=== PATIENT | female | born 1995 | race Caucasian/White ===

== ENCOUNTER 2016-03-15 21:05 | Emergency (ER) | payer MEDICAID, OTHER ==
[~2016-03-15] VITALS: Ht 170.2 cm; Wt 44.5 kg
[~2016-03-15 21:05] MED LIST: ZOFR4TAB3 SL
[2016-03-15 21:06] VITALS: BP 113/80; PULSE 88; RESP 14; TEMP 98; O2SAT 97
[2016-03-15] MEDS ORDERED: SODIUM CHLOR 0.9% 1000 ML INJ 1,000 ML IV ONE (22:48)
--- NOTE | 2016-03-15 22:53 | PD ---
HPI Chief Complaint: Headache Time Seen by Provider: 22:40 Travel History International Travel<30 days: No Contact w/Intl Traveler<30days: No Traveled to known affect area: No History of Present Illness HPI This is a 20-year-old female who presents for evaluation of cephalgia, sore throat. Symptoms started 2 weeks ago. She describes a waxing and waning occipital headache which is aching in nature. There are no aggravating or relieving factors. She endorses a sore throat as well. The patient was seen here on March 04 and then March 08 as well and diagnosed with viral syndrome both times. During her visit she had a negative urine test, normal CBC, CMP, negative strep antigen and culture, negative flu, normal chest x-ray, negative mono screen. Her urine culture did come back positive for Escherichia coli and she is currently on a 3 day course of Bactrim. She is not having any dysuria, abdominal pain. She denies any blurred vision, aura, vomiting, fevers or chills, stiff neck, rash, recent travel. She does note that there is a sore area on her occipital scalp when she palpates it. She has no other complaints. PFSH Past Medical History ADHD: No Asthma: Yes Bipolar Disorder: Yes Weight (Kg): 3 Depression: Yes Cancer: No Cardiovascular Problems: No Diabetes: No Diminished Hearing: No Headaches: No Psychiatric: Yes Respiratory: Yes (ASTHMA) Migraines: No Seizures: No Thyroid Disease: No Ulcer: No ?: Not LMP: 02/23/16 : 3 Para: 2 Miscarriage: 1 : 0 Past Surgical History Surgical History: No Previous Surgery Section: No Other Surgery: No Family History Family Hypercholesterolemia: Yes Social History Alcohol Use: No Tobacco Use: No Substance Use: Yes (MARIJUANA) Allergies-Medications (Allergen,Severity, Reaction): Coded Allergies: No Known Allergies (Unverified , 03/15/16) Reported Meds & Prescriptions Reported Meds & Active Scripts Active Zofran Odt (Ondansetron Odt) 4 Mg Tab 4 Mg SL Q6HR PRN Zofran Odt (Ondansetron Odt) 4 Mg Tab 4 Mg SL Q8HR PRN Review of Systems Except as stated in HPI: all other systems reviewed are Neg Physical Exam Narrative GENERAL: This is a well-developed well-nourished female in no acute distress GCS 15 SKIN: Warm and dry. HEAD: Atraumatic. Normocephalic. There is an area of tenderness to palpation on the occipital scalp. There are no obvious scalp deformities, no alopecia, no erythema or scaling or induration or fluctuance. EYES: Pupils equal and round reactive to light extraocular muscles are intact. No scleral icterus. No injection or drainage. ENT: No nasal bleeding or discharge. Mucous membranes pink and moist. No oral pharyngeal erythema or exudate. NECK: Trachea midline. No JVD. No lymphadenopathy CARDIOVASCULAR: Regular rate and rhythm. No murmur appreciated. RESPIRATORY: No accessory muscle use. Clear to auscultation. Breath sounds equal bilaterally. GASTROINTESTINAL: Abdomen soft, non-tender, nondistended. MUSCULOSKELETAL: No obvious deformities. Neck supple full range of motion NEUROLOGICAL: Awake and alert. No obvious cranial nerve deficits. Motor grossly within normal limits. Normal speech. Data Data Last Documented VS Vital Signs Date Time Temp Pulse Resp B/P Pulse Ox O2 Delivery O2 Flow Rate FiO2 03/15/16 21:06 98.0 88 14 113/[address] Brain W/O Iv Contrast(Rout) (03/15/16 22:48) Iv Access Insert/Monitor (03/15/16 22:48) Sodium Chloride 0.9% Flush (Ns Flush) (03/15/16 23:00) Diphenhydramine Inj (Benadryl Inj) (03/15/16 23:00) Metoclopramide Inj (Reglan Inj) (03/15/16 23:00) Sodium Chlor 0.9% 1000 Ml Inj (Ns 1000 M (03/15/16 22:48) Ketorolac Inj (Toradol Inj) (03/16/16 01:00) MDM Medical Decision Making Medical Screen Exam Complete: Yes Emergency Medical Condition: Yes Medical Record Reviewed: Yes Interpretation(s) CT brain no acute abnormalities Differential Diagnosis Occipital neuralgia, tension headache, migraine, tumor, pseudotumor cerebri, infectious mononucleosis, pharyngitis, dehydration Narrative Course 20-year-old female who is had a waxing and waning occipital headache, sore throat for 2 weeks. Seen here in March 04March 08 with multiple tests performed essentially unremarkable except for a positive urine culture currently on Bactrim. Physical examination is reassuring with no focal neurologic deficits, no oropharyngeal erythema or exudate or lymphadenopathy. I don't suspect meningitis, pseudotumor cerebri. Given the duration of her headache, a CT of the brain has been ordered. The patient will be treated symptomatically. 0100: CT of the brain is negative. Upon reexamination the patient reports that her headache has resolved. She is stable for discharge. Diagnosis Primary Impression: Cephalgia Qualified Code: R51 - Acute nonintractable headache, unspecified headache type Additional Instructions: Stay well-hydrated and well-nourished. Follow-up close with primary care physician. Return for any emergent medical conditions. Med/Other Pt SpecificInfo: No Change to Meds Disposition: 01 DISCHARGE HOME Condition: Stable Gilberto Yuen Mar 15, 2016 22:53
[2016-03-15] MEDS ORDERED: diphenhydrAMINE HCL 50 MG/ML VIAL IVP ONE (23:00)
[2016-03-15] MEDS ORDERED: SODIUM CHLORIDE 0.9% FLUSH 5 ML FLUSH IVF PRN (23:00)
[2016-03-15] MEDS ORDERED: METOCLOPRAMIDE HCL 10 MG/2 ML VIAL IVP ONE (23:00)
--- NOTE | 2016-03-16 00:54 | RADRPT ---
EXAM DATE/TIME: 03/16/2016 00:30 [facility] COMPARISON: No previous studies available for comparison. INDICATIONS : Cephalgia. RADIATION DOSE: 56.77 CTDIvol (mGy) MEDICAL HISTORY : None SURGICAL HISTORY : None. ENCOUNTER: Initial ACUITY: 1 day PAIN SCALE: 7/10 LOCATION: cranial TECHNIQUE: Multiple contiguous axial images were obtained of the head. Using automated exposure control and adj ustment of the mA and/or kV according to patient size, radiation dose was kept as low as reasonably a chievable to obtain optimal diagnostic quality images. FINDINGS: CEREBRUM: The ventricles are normal for age. No evidence of midline shift, mass lesion, hemorrhage or acute in farction. No extra-axial fluid collections are seen. POSTERIOR FOSSA: The cerebellum and brainstem are intact. The 4th ventricle is midline. The cerebellopontine angle i s unremarkable. EXTRACRANIAL: The visualized portion of the orbits is intact. SKULL: The calvaria is intact. No evidence of skull fracture. CONCLUSION: Negative noncontrast CT brain. Molina Messina MD on March 16, 2016 at 0:52 Board Certified Radiologist. This report was verified electronically.
[2016-03-16] MEDS ORDERED: KETOROLAC TROMETHAMINE 30 MG/ML (IVP) VIAL IV PUSH ONE (01:00)
== END 2016-03-16 02:31 | disposition home or self-care (01) ==
LOC: NEPB 21:05
DX: R51 Headache (principal)
CPT/HCPCS: 70450; 96361; 96374; 96375; 99284; J1200; J1885; J2765; J7030

== ENCOUNTER 2016-04-04 18:08 | Emergency (ER) | payer MEDICAID, OTHER ==
[~2016-04-04] VITALS: Ht 170.2 cm; Wt 45.0 kg
[2016-04-04 18:10] VITALS: BP 114/72; PULSE 122; RESP 14; TEMP 97.8; O2SAT 97
[2016-04-04] MEDS ORDERED: SODIUM CHLOR 0.9% 1000 ML INJ 1,000 ML IV SCH (20:35)
--- NOTE | 2016-04-04 20:38 | PD ---
HPI Chief Complaint: Abdominal Pain Time Seen by Provider: 20:35 Travel History International Travel<30 days: No Contact w/Intl Traveler<30days: No Traveled to known affect area: No History of Present Illness HPI This is a 20-year-old female who presents to the emergency department with right sided lower abdominal pain, starting abruptly yesterday, constant for 2 days, sharp, stabbing, radiating to the back, worsening today. She denies any fevers or chills. She does feel nauseous but has not vomited. She's had no appetite. She does say it montiel when she urinates and she's been going to the bathroom more often. She denies any vaginal discharge. She's had one sexual partner in the last 6 months. She says she's never had pain like this before. PFSH Past Medical History ADHD: No Asthma: Yes Bipolar Disorder: Yes Depression: Yes Cancer: No Cardiovascular Problems: No Diabetes: No Diminished Hearing: No Headaches: No Psychiatric: Yes Respiratory: Yes (ASTHMA) Migraines: No Seizures: No Thyroid Disease: No Ulcer: No ?: Not : 3 Para: 2 Miscarriage: 1 : 0 Past Surgical History Section: No Other Surgery: No Family History Family Hypercholesterolemia: Yes Social History Alcohol Use: No Tobacco Use: No Substance Use: Yes (MARIJUANA) Allergies-Medications (Allergen,Severity, Reaction): Coded Allergies: No Known Allergies (Unverified , 03/15/16) Reported Meds & Prescriptions Reported Meds & Active Scripts Active No Active Prescriptions or Reported Medications Review of Systems Except as stated in HPI: all other systems reviewed are Neg Physical Exam Narrative GENERAL: Well-nourished, well-developed patient. SKIN: Warm and dry. HEAD: Normocephalic. EYES: No scleral icterus. No injection or drainage. NECK: Supple, trachea midline. CARDIOVASCULAR: Regular rate and rhythm without murmurs. RESPIRATORY: Breath sounds equal bilaterally. No accessory muscle use. : Right CVA tenderness. MOTOR ADJUSTER: tender to palpation over the right adnexa with no mass, no cmt, no vaginal discharge GASTROINTESTINAL: Abdomen soft, tender to palpation in the right lower quadrant and suprapubic region with no rebound or guarding. MUSCULOSKELETAL: No cyanosis, or edema. Data Data Last Documented VS Vital Signs Date Time Temp Pulse Resp B/P Pulse Ox O2 Delivery O2 Flow Rate FiO2 04/04/16 21:12 20 99 Room Air 04/04/16 18:10 97.8 122 114/72 Orders Complete Blood Count With Diff (04/04/16 20:35) Comprehensive Metabolic Panel (04/04/16 20:35) Urinalysis - C+S If Indicated (04/04/16 20:35) Iv Access Insert/Monitor (04/04/16 20:35) Ecg Monitoring (04/04/16 20:35) Oximetry (04/04/16 20:35) Sodium Chlor 0.9% 1000 Ml Inj (Ns 1000 M (04/04/16 20:35) Sodium Chloride 0.9% Flush (Ns Flush) (04/04/16 20:45) Ketorolac Inj (Toradol Inj) (04/04/16 20:45) Ed Urine Pregnancytest Poc (04/04/16 20:35) Wet Prep Profile (04/04/16 20:36) Gc And Chlamydia Pcr (04/04/16 20:36) Labs Laboratory Tests Test 04/04/16 21:00 White Blood Count 8.2 TH/MM3 Red Blood Count 4.31 MIL/MM3 Hemoglobin 13.0 GM/DL Hematocrit 36.4 % Mean Corpuscular Volume 84.5 FL Mean Corpuscular Hemoglobin 30.1 PG Mean Corpuscular Hemoglobin 35.6 % Concent Red Cell Distribution Width 13.1 % Platelet Count 286 TH/MM3 Mean Platelet Volume 8.0 FL Neutrophils (%) (Auto) 58.4 % Lymphocytes (%) (Auto) 32.0 % Monocytes (%) (Auto) 8.4 % Eosinophils (%) (Auto) 0.8 % Basophils (%) (Auto) 0.4 % Neutrophils # (Auto) 4.8 TH/MM3 Lymphocytes # (Auto) 2.6 TH/MM3 Monocytes # (Auto) 0.7 TH/MM3 Eosinophils # (Auto) 0.1 TH/MM3 Basophils # (Auto) 0.0 TH/MM3 CBC Comment DIFF FINAL Differential Comment Urine Color YELLOW Urine Turbidity CLEAR Urine pH 5.5 Urine Specific [place] 1.018 Urine Protein NEG mg/dL Urine Glucose (UA) NEG mg/dL Urine Ketones NEG mg/dL Urine Occult Blood NEG Urine Nitrite NEG Urine Bilirubin NEG Urine Urobilinogen LESS THAN 2.0 MG/DL Urine Leukocyte Esterase NEG Urine RBC LESS THAN 1 /hpf Urine WBC 2 /hpf Urine Squamous Epithelial 1 /hpf Cells Urine Mucus FEW /lpf Microscopic Urinalysis Comment CULT NOT INDICATED Sodium Level 141 MEQ/L Potassium Level 3.3 MEQ/L Chloride Level 104 MEQ/L Carbon Dioxide Level 29.2 MEQ/L Anion Gap 8 MEQ/L Blood Urea Nitrogen 10 MG/DL Creatinine 0.77 MG/DL Estimat Glomerular Filtration 97 ML/MIN Rate Random Glucose 85 MG/DL Calcium Level 8.9 MG/DL Total Bilirubin 0.5 MG/DL Aspartate Amino Transf 9 U/L (AST/SGOT) Alanine Aminotransferase 21 U/L (ALT/SGPT) Alkaline Phosphatase 106 U/L Total Protein 7.6 GM/DL Albumin 4.1 GM/DL [facility] Medical Decision Making Medical Screen Exam Complete: Yes Emergency Medical Condition: Yes Interpretation(s) Afebrile, tachycardic, normotensive No leukocytosis Mild hypokalemia Urinalysis: Negative for infection Differential Diagnosis Ovarian cyst rupture, appendicitis, urinary tract infection, nephrolithiasis, pelvic inflammatory disease Narrative Course This is a 20-year-old female who presents to the emergency department with right sided pelvic pain, intermittent and worsening over the past 2 days. She is very comfortable appearing, in no acute distress. She is placed on a monitor and an IV was established. Labs were obtained which were all reassuring. White blood cell count is normal and the patient is afebrile. Given her constellation of symptoms I doubt appendicitis. Her pelvic exam was unremarkable with the exception of some right adnexal tenderness. I suspect the patient had no ovarian cyst rupture. Given she is very well-appearing and comfortable I doubt an ovarian torsion. I did discuss with her the risks versus benefits of further imaging and I urged her to return to the emergency department if her symptoms worsen, if she develops vomiting, fever or for pain is worsening. Patient was amenable to this plan. Diagnosis Primary Impression: Ovarian cyst rupture Patient Instructions: General Instructions Additional Instructions: If you develop severe or worsening abdominal pain, fever>100.4, persistent vomiting or inability to eat or drink return to the emergency department immediately. Follow up with your primary care physician in 1-2 days for a check-up. Med/Other Pt SpecificInfo: Prescription(s) given Scripts Naproxen 500 Mg [id number] Mg PO BID PRN (PAIN SCALE 4 TO 10) #20 TAB Prov:Kirstin Velasquez MD 04/04/16 Disposition: 01 DISCHARGE HOME Condition: Stable Kirstin Velasquez MD Apr 04, 2016 20:38
[2016-04-04] MEDS ORDERED: SODIUM CHLORIDE 0.9% FLUSH 5 ML FLUSH IVF PRN (20:45)
[2016-04-04] MEDS ORDERED: KETOROLAC TROMETHAMINE 30 MG/ML (IVP) VIAL IVP ONE (20:45)
[2016-04-04 21:00] VITALS: BP 119/65; PULSE 79; RESP 18; O2SAT 98
[2016-04-04 21:12] VITALS: RESP 20; O2SAT 99
[2016-04-04 21:30] LABS: BLOOD, URINE NEG (NEG); COMMENT (UR) CULT NOT INDICATED; CULTURE IF INDICATED CULT NOT INDICATED; GLUCOSE,URINE NEG (NEG); KETONE, URINE NEG (NEG); MUCUS URINE FEW /lpf (OCC); NITRITE,URINE NEG (NEG); PH, URINE 5.5 (5.0-8.5); SQUAMOUS EPITHELIAL CELL URINE 1 /hpf (0-5); URINE COLOR YELLOW (YELLW/STRAW)
[2016-04-04 21:37] LABS: AUTOMATED NEUTROPHIL # 4.8 TH/MM3 (1.8-7.7); BASOPHIL % 0.4 % (0.0-2.0); EOSINOPHIL # 0.1 TH/MM3 (0-0.4); EOSINOPHIL % 0.8 % (0.0-4.0); HEMATOCRIT 36.4 % (35.0-46.0); HEMO FLAGS DIFF FINAL; LYMPHOCYTE # 2.6 TH/MM3 (1.0-4.8); MEAN CELL VOLUME 84.5 FL (80.0-100.0); MEAN CORPUSCULAR HEMOGLOBIN 30.1 PG (27.0-34.0); MEAN CORPUSCULAR HGB CONC 35.6 % (32.0-36.0); MONO % 8.4 % (0.0-8.0); NEUT % 58.4 % (16.0-70.0); PLATELET COUNT 286 TH/MM3 (150-450); RED BLOOD COUNT 4.31 MIL/MM3 (4.00-5.30); RED CELL DISTRIBUTION WIDTH 13.1 % (11.6-17.2); WHITE BLOOD COUNT 8.2 TH/MM3 (4.0-11.0)
[2016-04-04 21:41] LABS: ANION GAP 8 MEQ/L (5-15); AST (GOT) 9 U/L (16-38); BICARBONATE 29.2 MEQ/L (21.0-32.0); BLOOD UREA NITROGEN 10 MG/DL (7-18); CHLORIDE 104 MEQ/L (98-107); GLOMERULAR FILTRATION RATE 97 ML/MIN (>89); POTASSIUM 3.3 MEQ/L (3.5-5.1); SODIUM (NA) 141 MEQ/L (136-145)
[2016-04-04 21:44] LABS: ALKALINE PHOSPHATASE 106 U/L (45-117); ALT (GPT) 21 U/L (9-42); TOTAL BILIRUBIN ADULT 0.5 MG/DL (0.2-1.0)
[2016-04-04] MEDS ORDERED: NAPR500T PO (22:19)
[2016-04-04 22:33] VITALS: BP 117/87; PULSE 88; RESP 18; O2SAT 98
[2016-04-04 22:34] VITALS: RESP 18
[2016-04-05 00:57] LABS: CHLAMYDIA PCR NOT DETECTED (NOT DETECT); NEISSERIA PCR NOT DETECTED (NOT DETECT)
== END 2016-04-04 22:58 | disposition home or self-care (01) ==
LOC: NEPE 18:08
DX: N83.201 Unspecified ovarian cyst, right side (principal); R30.0 Dysuria
CPT/HCPCS: 80053; 81001; 84703; 85025; 87210; 87491; 87591; 96361; 96374; 99284; J1885; J7030

== ENCOUNTER 2016-04-27 14:08 | Emergency (ER) | payer OTHER ==
[~2016-04-27] VITALS: Ht 172.7 cm; Wt 48.0 kg
[~2016-04-27 14:08] MED LIST changes: +NAPR500T PO; -ZOFR4TAB3 SL
[2016-04-27 14:09] VITALS: BP 112/72; PULSE 74; RESP 14; TEMP 97.9; O2SAT 99
[2016-04-27] MEDS ORDERED: SODIUM CHLORIDE 0.9% FLUSH 5 ML FLUSH IVF PRN (15:15)
[2016-04-27 15:24] VITALS: O2SAT 100
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
[2016-04-27 15:54] LABS: AUTOMATED NEUTROPHIL # 4.7 TH/MM3 (1.8-7.7); BASOPHIL % 0.4 % (0.0-2.0); EOSINOPHIL # 0.1 TH/MM3 (0-0.4); EOSINOPHIL % 1.3 % (0.0-4.0); HEMATOCRIT 34.6 % (35.0-46.0); HEMO FLAGS DIFF FINAL; LYMPH % 27.9 % (9.0-44.0); LYMPHOCYTE # 2.2 TH/MM3 (1.0-4.8); MEAN CELL VOLUME 85.8 FL (80.0-100.0); NEUT % 60.4 % (16.0-70.0); PLATELET COUNT 313 TH/MM3 (150-450); RED BLOOD COUNT 4.03 MIL/MM3 (4.00-5.30); RED CELL DISTRIBUTION WIDTH 13.3 % (11.6-17.2); WHITE BLOOD COUNT 7.9 TH/MM3 (4.0-11.0)
[2016-04-27 16:08] LABS: BICARBONATE 29.2 MEQ/L (21.0-32.0); POTASSIUM 3.8 MEQ/L (3.5-5.1)
[2016-04-27] MEDS ORDERED: IOHEXOL 350 MG/ML 10 ML VIAL (for RAD DIAG) IV ONE (17:16)
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
[2016-04-27] MEDS ORDERED: ACETAMINOPHEN 325 MG TAB PO ONE (18:15)
[2016-04-27 18:26] VITALS: BP 118/58
== END 2016-04-27 18:27 | disposition home or self-care (01) ==
LOC: NEPB 14:08 → NEPA 18:27
DX: R07.89 Other chest pain (principal); R10.9 Unspecified abdominal pain; J45.909 Unspecified asthma, uncomplicated; F31.9 Bipolar disorder, unspecified; F17.210 Nicotine dependence, cigarettes, uncomplicated; Y04.0XXA Assault by unarmed brawl or fight, initial encounter; Y93.9 Activity, unspecified; Y92.9 Unspecified place or not applicable; Y99.9 Unspecified external cause status
CPT/HCPCS: 71020; 74177; 80048; 85025; 99284; Q9967

== ENCOUNTER 2016-06-28 15:59 | Emergency (ER) | payer MEDICAID, OTHER ==
[~2016-06-28] VITALS: Ht 167.6 cm; Wt 55.0 kg
[2016-06-28 16:05] VITALS: BP 116/71; PULSE 104; RESP 16; TEMP 98.9; O2SAT 98
[2016-06-28] MEDS ORDERED: SODIUM CHLORIDE 0.9% FLUSH 10 ML FLUSH IVF PRN (16:15)
--- NOTE | 2016-06-28 16:26 | PD ---
HPI Chief Complaint: Respiratory Symptoms Time Seen by Provider: 16:23 Travel History International Travel<30 days: No Contact w/Intl Traveler<30days: No Traveled to known affect area: No History of Present Illness HPI Patient is a 21-year-old female presented to the emergency for evaluation of shortness of breath and pain. Patient states for the last hour she's felt as if she could not take a deep breath or EKG reports intermittent chest pain that radiates up to her left shoulder. Patient also reports feeling as if her heart is beating fast. She reports a history of asthma but states she's never felt like this before. PFSH Past Medical History ADHD: No Asthma: Yes Bipolar Disorder: Yes Depression: Yes Cancer: No Cardiovascular Problems: No Diabetes: No Diminished Hearing: No Genitourinary: Yes (UTI) Headaches: No Psychiatric: Yes Respiratory: Yes (ASTHMA) Migraines: No Seizures: No Thyroid Disease: No Ulcer: No ?: Not LMP: 06/02/16 : 3 Para: 2 Miscarriage: 1 : 0 Past Surgical History Section: No Other Surgery: No Family History Family Hypercholesterolemia: Yes Social History Alcohol Use: No Tobacco Use: Yes (CIG) Substance Use: Yes (MARIJUANA OCC) Allergies-Medications (Allergen,Severity, Reaction): Coded Allergies: No Known Allergies (Unverified , 06/28/16) Reported Meds & Prescriptions Reported Meds & Active Scripts Active No Active Prescriptions or Reported Medications Review of Systems Except as stated in HPI: all other systems reviewed are Neg General / Constitutional: No: Fever HENT: No: Headaches Cardiovascular: Positive: Chest Pain or Discomfort, Palpitations, Tachycardia Respiratory: Positive: Shortness of Breath, Pleuritic Pain Gastrointestinal: No: Nausea, Abdominal Pain Physical Exam Narrative GENERAL: Well-developed, well-nourished, alert female. Resting comfortably in no acute distress. SKIN: Focused skin assessment warm/dry. HEAD: Atraumatic. Normocephalic. EYES: Pupils equal and round. No scleral icterus. No injection or drainage. ENT: No nasal bleeding or discharge. Mucous membranes pink and moist. NECK: Trachea midline. No JVD. CARDIOVASCULAR: Tachycardic. No murmur appreciated. RESPIRATORY: No accessory muscle use. Clear to auscultation. Breath sounds equal bilaterally. GASTROINTESTINAL: Abdomen soft, non-tender, nondistended. Hepatic and splenic margins not palpable. MUSCULOSKELETAL: No obvious deformities. No clubbing. No cyanosis. No edema. NEUROLOGICAL: Awake and alert. No obvious cranial nerve deficits. Motor grossly within normal limits. Normal speech. PSYCHIATRIC: Appropriate mood and affect; insight and judgment normal. Data Data Last Documented VS Vital Signs Date Time Temp Pulse Resp B/P Pulse Ox O2 Delivery O2 Flow Rate FiO2 06/28/16 17:27 65 16 119/63 100 06/28/16 16:57 Room Air 06/28/16 16:05 98.9 Orders Complete Blood Count With Diff (06/28/16 16:13) Basic Metabolic Panel (Bmp) (06/28/16 16:13) D-Dimer (06/28/16 16:13) Iv Access Insert/Monitor (06/28/16 16:13) Electrocardiogram (06/28/16 16:13) Ecg Monitoring (06/28/16 16:13) Oximetry (06/28/16 16:13) Oxygen Administration (06/28/16 16:13) Chest, Single Ap (06/28/16 16:13) Sodium Chloride 0.9% Flush (Ns Flush) (06/28/16 16:15) Labs Laboratory Tests Test 06/28/16 16:30 White Blood Count 7.7 TH/MM3 Red Blood Count 4.15 MIL/MM3 Hemoglobin 12.5 GM/DL Hematocrit 35.2 % Mean Corpuscular Volume 84.6 FL Mean Corpuscular Hemoglobin 30.0 PG Mean Corpuscular Hemoglobin 35.5 % Concent Red Cell Distribution Width 12.3 % Platelet Count 267 TH/MM3 Mean Platelet Volume 8.0 FL Neutrophils (%) (Auto) 61.0 % Lymphocytes (%) (Auto) 28.4 % Monocytes (%) (Auto) 9.2 % Eosinophils (%) (Auto) 0.8 % Basophils (%) (Auto) 0.6 % Neutrophils # (Auto) 4.7 TH/MM3 Lymphocytes # (Auto) 2.2 TH/MM3 Monocytes # (Auto) 0.7 TH/MM3 Eosinophils # (Auto) 0.1 TH/MM3 Basophils # (Auto) 0.0 TH/MM3 CBC Comment DIFF FINAL Differential Comment D-Dimer Quantitative (PE/DVT) 0.26 MG/L FEU Sodium Level 141 MEQ/L Potassium Level 3.8 MEQ/L Chloride Level 107 MEQ/L Carbon Dioxide Level 29.2 MEQ/L Anion Gap 5 MEQ/L Blood Urea Nitrogen 15 MG/DL Creatinine 0.84 MG/DL Estimat Glomerular Filtration 86 ML/MIN Rate Random Glucose 87 MG/DL Calcium Level 8.9 MG/DL MDM Medical Decision Making Medical Screen Exam Complete: Yes Emergency Medical Condition: Yes Interpretation(s) Vital Signs Date Time Temp Pulse Resp B/P Pulse Ox O2 Delivery O2 Flow Rate FiO2 06/28/16 16:05 98.9 104 16 116/71 98 Differential Diagnosis Pleurisy versus PE versus asthma exacerbation versus anxiety versus other Narrative Course Patient is a 21-year-old female presented to emergency department for evaluation of shortness of breath and pain in her chest. Symptoms started 1 hour prior to arrival. Due to the abrupt onset of d-dimer was ordered as well as labs and a chest x-ray. D-dimer was normal, labs are unremarkable. Patient appears well. She was mildly tachycardic on arrival, her heart rate was reassessed in the 80s. Diagnosis Primary Impression: Chest pain, unspecified Referrals: Primary Care Physician Patient Instructions: Chest Pain (ED), General Instructions Additional Instructions: Follow-up with her primary doctor Return to emergency department for any new or worsening symptoms May take [id number] acetaminophen or ibuprofen as needed and as directed for pain Med/Other Pt SpecificInfo: No Change to Meds Scripts No Active Prescriptions or Reported Meds Disposition: 01 DISCHARGE HOME Condition: Stable Vianney Leung Jun 28, 2016 16:25
[2016-06-28 16:56] LABS: AUTOMATED NEUTROPHIL # 4.7 TH/MM3 (1.8-7.7); BASOPHIL % 0.6 % (0.0-2.0); EOSINOPHIL # 0.1 TH/MM3 (0-0.4); EOSINOPHIL % 0.8 % (0.0-4.0); HEMATOCRIT 35.2 % (35.0-46.0); HEMO FLAGS DIFF FINAL; LYMPH % 28.4 % (9.0-44.0); LYMPHOCYTE # 2.2 TH/MM3 (1.0-4.8); MEAN CELL VOLUME 84.6 FL (80.0-100.0); MEAN CORPUSCULAR HGB CONC 35.5 % (32.0-36.0); MONO % 9.2 % (0.0-8.0); PLATELET COUNT 267 TH/MM3 (150-450); RED BLOOD COUNT 4.15 MIL/MM3 (4.00-5.30); RED CELL DISTRIBUTION WIDTH 12.3 % (11.6-17.2); WHITE BLOOD COUNT 7.7 TH/MM3 (4.0-11.0)
[2016-06-28 16:57] VITALS: BP 116/59; PULSE 82; RESP 16; O2SAT 98
[2016-06-28 17:12] LABS: BICARBONATE 29.2 MEQ/L (21.0-32.0); POTASSIUM 3.8 MEQ/L (3.5-5.1)
--- NOTE | 2016-06-28 17:13 | PD ---
Data Data Last Documented VS Vital Signs Date Time Temp Pulse Resp B/P Pulse Ox O2 Delivery O2 Flow Rate FiO2 06/28/16 16:57 82 16 116/59 98 Room Air 06/28/16 16:05 98.9 Orders Complete Blood Count With Diff (06/28/16 16:13) Basic Metabolic Panel (Bmp) (06/28/16 16:13) D-Dimer (06/28/16 16:13) Iv Access Insert/Monitor (06/28/16 16:13) Electrocardiogram (06/28/16 16:13) Ecg Monitoring (06/28/16 16:13) Oximetry (06/28/16 16:13) Oxygen Administration (06/28/16 16:13) Chest, Single Ap (06/28/16 16:13) Sodium Chloride 0.9% Flush (Ns Flush) (06/28/16 16:15) Labs Laboratory Tests Test 06/28/16 16:30 White Blood Count 7.7 TH/MM3 Red Blood Count 4.15 MIL/MM3 Hemoglobin 12.5 GM/DL Hematocrit 35.2 % Mean Corpuscular Volume 84.6 FL Mean Corpuscular Hemoglobin 30.0 PG Mean Corpuscular Hemoglobin 35.5 % Concent Red Cell Distribution Width 12.3 % Platelet Count 267 TH/MM3 Mean Platelet Volume 8.0 FL Neutrophils (%) (Auto) 61.0 % Lymphocytes (%) (Auto) 28.4 % Monocytes (%) (Auto) 9.2 % Eosinophils (%) (Auto) 0.8 % Basophils (%) (Auto) 0.6 % Neutrophils # (Auto) 4.7 TH/MM3 Lymphocytes # (Auto) 2.2 TH/MM3 Monocytes # (Auto) 0.7 TH/MM3 Eosinophils # (Auto) 0.1 TH/MM3 Basophils # (Auto) 0.0 TH/MM3 CBC Comment DIFF FINAL Differential Comment D-Dimer Quantitative (PE/DVT) 0.26 MG/L FEU MDM Supervised Visit with TRISTAN: Yes Narrative Course I, Dr. Hughes, have reviewed the advance practice practioner's documentation and am in agreement, met with the patient face to face, made the diagnosis, and the medical decision making was done by me. *My assessment and Findings: 21-year-old female here with complaint of shortness of breath. Patient states that she had fairly sudden onset of shortness of breath as if she couldn't take a deep breath for the last hour or so. Associated palpitations as though her heart is racing and skipping beats. History of asthma but no history of similar symptoms to this. Patient also notes a twinge, describes this as one to 2 seconds of pain in the chest. Really no DVT or PE risk factors though she is slightly tachycardic with heart rate of 104. Differential includes arrhythmia, palpitations, anxiety, left lid abnormality and less likely PE. Twelve-lead EKG shows sinus rhythm with sinus arrhythmia but otherwise negative. We'll obtain laboratory workup including d- dimer and chest x-ray for disposition to home if negative. Scripts No Active Prescriptions or Reported Meds Shayy Hughes MD Jun 28, 2016 17:13
[2016-06-28 17:27] VITALS: BP 119/63
--- NOTE | 2016-06-28 17:32 | RADRPT ---
EXAM DATE/TIME: 06/28/2016 16:32 [facility] COMPARISON: CHEST SINGLE AP, March 04, 2016, 20:15. INDICATIONS : Shortness of breath. MEDICAL HISTORY : None. SURGICAL HISTORY : None. ENCOUNTER: Initial ACUITY: 1 day PAIN SCORE: 0/10 LOCATION: Bilateral chest FINDINGS: A single view of the chest demonstrates the lungs to be symmetrically hyperinflated without evidence of mass, infiltrate or effusion. The cardiomediastinal contours are unremarkable. Osseous structure s are intact. CONCLUSION: Hyperinflation with no acute cardiopulmonary process. Eric Segura MD on June 28, 2016 at 17:28 Board Certified Radiologist. This report was verified electronically.
--- NOTE | 2016-06-29 13:33 | EKG ---
Date Performed: 06/28/2016 Time Performed: 16:38:38 PTAGE: 21 years EKG: Sinus rhythm WITH SINUS ARRHYTHMIA NORMAL ECG Compared to prior tracing no significant change PREVIOUS TRACING : 03/04/2016 20.30 DOCTOR: Jeffrey Cabral Interpretating Date/Time 06/29/2016 13:31:30
== END 2016-06-28 17:35 | disposition home or self-care (01) ==
LOC: NEPD 15:59
DX: R07.9 Chest pain, unspecified (principal)
CPT/HCPCS: 71010; 80048; 85025; 85379; 93005

== ENCOUNTER 2017-02-14 10:20 | Emergency (ER) | payer MEDICAID ==
[~2017-02-14] VITALS: Ht 167.6 cm; Wt 43.0 kg
[2017-02-14 10:23] VITALS: BP 119/72; PULSE 105; RESP 16; TEMP 99.4; O2SAT 98
--- NOTE | 2017-02-14 10:53 | PD ---
HPI Chief Complaint: GI Complaint Time Seen by Provider: 10:32 Travel History International Travel<30 days: No Contact w/Intl Traveler<30days: No Traveled to known affect area: No History of Present Illness HPI This is a 21 year old approximately 8 weeks by dates who presents to the emergency department with subjective fevers for 3 days, associated with vomiting , not able to eat or drink, constant, moderate severity associated with lower abdominal pain. Pt. reports that she was vomiting in bed this morning and she felt like she passed out and the ambulance was there when she woke up and she thinks her son called EMS. Pt. has had some dark vaginal spotting since yesterday. Pt. found out she was 2 weeks ago and has not had an ultrasound in this . PFSH Past Medical History ADHD: No Asthma: Yes Bipolar Disorder: Yes Weight (Kg): 3 Depression: Yes Cancer: No Cardiovascular Problems: No Diabetes: No Diminished Hearing: No Genitourinary: Yes (UTI) Headaches: No Psychiatric: Yes Respiratory: Yes (ASTHMA) Migraines: No Seizures: No Thyroid Disease: No Ulcer: No Tetanus Vaccination: < 5 Years Influenza Vaccination: No ?: LMP: 12/15/16 : 3 Para: 2 Miscarriage: 1 : 0 Past Surgical History Surgical History: No Previous Surgery Section: No Family History Family Hypercholesterolemia: Yes Social History Alcohol Use: No Tobacco Use: No (QUIT 2 WEEKS AGO) Substance Use: No Allergies-Medications (Allergen,Severity, Reaction): Coded Allergies: No Known Allergies (Verified Allergy, Unknown, 02/14/17) Reported Meds & Prescriptions Reported Meds & Active Scripts Active No Active Prescriptions or Reported Medications Review of Systems Except as stated in HPI: all other systems reviewed are Neg Physical Exam Narrative GENERAL:Well appearing, no acute distress SKIN: Focused skin assessment warm and dry. HEAD: Atraumatic. Normocephalic. EYES: Pupils equal and round. No injection or drainage. ENT: Moist mucous membranes NECK: Trachea midline. CARDIOVASCULAR: Regular rate and rhythm. No murmur appreciated. RESPIRATORY: Clear to auscultation. Breath sounds equal bilaterally. GASTROINTESTINAL: Abdomen soft, non-tender, nondistended. MUSCULOSKELETAL: No obvious deformities. NEUROLOGICAL: Awake and alert. No obvious cranial nerve deficits. Moving all extremities. PSYCHIATRIC: Appropriate mood and affect; insight and judgment normal. Data Data Last Documented VS Vital Signs Date Time Temp Pulse Resp B/P (MAP) Pulse Ox O2 Delivery O2 Flow Rate FiO2 02/14/17 10:25 16 02/14/17 10:23 99.4 105 119/72 (88) 98 Orders Orders Comprehensive Metabolic Panel (02/14/17 10:56) Complete Blood Count With Diff (02/14/17 10:56) Urinalysis - C+S If Indicated (02/14/17 10:56) Ondansetron Odt (Zofran Odt) (02/14/17 11:30) Sodium Chlor 0.9% 1000 Ml Inj (Ns 1000 M (02/14/17 11:00) Ed Poc Ultrasound (02/14/17 ) Ondansetron Inj (Zofran Inj) (02/14/17 11:30) Gc And Chlamydia Pcr (02/14/17 12:30) Wet Prep Profile (02/14/17 12:30) Acetaminophen (Tylenol) (02/14/17 12:45) Sodium Chlor 0.9% 1000 Ml Inj (Ns 1000 M (02/14/17 12:45) Labs Laboratory Tests Test 02/14/17 10:50 02/14/17 12:00 02/14/17 12:20 White Blood Count 10.9 TH/MM3 Red Blood Count 4.07 MIL/MM3 Hemoglobin 12.1 GM/DL Hematocrit 35.1 % Mean Corpuscular Volume 86.4 FL Mean Corpuscular Hemoglobin 29.6 PG Mean Corpuscular Hemoglobin Concent 34.3 % Red Cell Distribution Width 12.7 % Platelet Count 217 TH/MM3 Mean Platelet Volume 8.0 FL Neutrophils (%) (Auto) 88.5 % Lymphocytes (%) (Auto) 3.2 % Monocytes (%) (Auto) 8.2 % Eosinophils (%) (Auto) 0.0 % Basophils (%) (Auto) 0.1 % Neutrophils # (Auto) 9.7 TH/MM3 Lymphocytes # (Auto) 0.3 TH/MM3 Monocytes # (Auto) 0.9 TH/MM3 Eosinophils # (Auto) 0.0 TH/MM3 Basophils # (Auto) 0.0 TH/MM3 CBC Comment DIFF FINAL Differential Comment Blood Urea Nitrogen 8 MG/DL Creatinine 0.69 MG/DL Random Glucose 113 MG/DL Total Protein 7.2 GM/DL Albumin 3.5 GM/DL Calcium Level 8.4 MG/DL Alkaline Phosphatase 79 U/L Aspartate Amino Transf (AST/SGOT) 13 U/L Alanine Aminotransferase (ALT/SGPT) 13 U/L Total Bilirubin 0.4 MG/DL Sodium Level 134 MEQ/L Potassium Level 3.0 MEQ/L Chloride Level 102 MEQ/L Carbon Dioxide Level 23.0 MEQ/L Anion Gap 9 MEQ/L Estimat Glomerular Filtration Rate 108 ML/MIN Urine Color YELLOW Urine Turbidity CLEAR Urine pH 6.5 Urine Specific Arjay 1.018 Urine Protein TRACE mg/dL Urine Glucose (UA) NEG mg/dL Urine Ketones 40 mg/dL Urine Occult Blood NEG Urine Nitrite NEG Urine Bilirubin NEG Urine Urobilinogen 2.0 MG/DL Urine Leukocyte Esterase NEG Urine RBC LESS THAN 1 /hpf Urine WBC 1 /hpf Urine Squamous Epithelial Cells 1 /hpf Urine Mucus FEW /lpf Microscopic Urinalysis Comment CULT NOT INDICATED Clue Cells (Wet Prep) NONE SEEN Vaginal Trichomonas (Wet Prep) NONE SEEN Vaginal Yeast (Wet Prep) NONE SEEN MDM Medical Decision Making Medical Screen Exam Complete: Yes Emergency Medical Condition: Yes Interpretation(s) temperature 99.4, tachycardic No leukocytosis 80% neutrophils Potassium is 3.0 Urinalysis demonstrates some ketones Differential Diagnosis Ectopic , hyperemesis gravidarum, viral syndrome, appendicitis, PID Narrative Course This is a 21-year-old female who is approximately 8 weeks by dates who presents to the emergency department with vomiting and lower abdominal discomfort associated with some spotting. She's never had spotting and prior pregnancies. She is placed in a monitor and an IV was established. Labs are obtained which were reassuring. Urinalysis demonstrates ketones. Pelvic exam demonstrates some white vaginal discharge but no signs of PID. Patient's feels much better after 2 L of IV fluids and Zofran. She says she struggled with nausea vomiting and her last . I did a bedside ultrasound which demonstrated an intrauterine with an abnormal heart rate of 200. Diagnosis Primary Impression: Threatened miscarriage Patient Instructions: General Instructions Additional Instructions: You have been diagnosed with a threatened miscarriage. Many women who have vaginal bleeding in early go on to have normal pregnancies. However some women that have vaginal bleeding will have a miscarriage and it is important to followup with your clinical manager home care. If you develop severe abdominal pain, fever, persistent vomiting or inability to eat, heavy vaginal bleeding using more than one pad an hour, lightheadedness , dizziness, chest pain or shortness of breath return to the emergency department immediately. Followup with your clinical manager home care as soon as possible. Take Tylenol as needed for pain. Med/Other Pt SpecificInfo: Prescription(s) given Scripts Pyridoxine (Pyridoxine) 25 Mg Tab 25 MG PO DAILY for Nutritional Supplement, #30 TAB 0 Refills Prov: Kirstin Velasquez MD 02/14/17 Doxylamine Succinate (Nighttime Sleep-Aid) 25 Mg Tablet 1 TAB PO HS Y for NAUSEA, #20 Prov: Kirstin Velasquez MD 02/14/17 Ondansetron Odt (Zofran Odt) 4 Mg Tab 4 MG SL Q6HR Y for Nausea/Vomiting, #20 TAB 0 Refills Prov: Kirstin Velasquez MD 02/14/17 Disposition: 01 DISCHARGE HOME Condition: Stable Kirstin Velasquez MD Feb 14, 2017 10:53
[2017-02-14] MEDS ORDERED: SODIUM CHLOR 0.9% 1000 ML INJ 1,000 ML IV ONE ×2 (11:00→12:45)
[2017-02-14] MEDS ORDERED: ONDANSETRON HCL 4 MG/2 ML VIAL IV PUSH ONE (11:30)
[2017-02-14] MEDS ORDERED: ONDANSETRON ODT 4 MG TAB PO ONE (11:30)
[2017-02-14 11:38] LABS: AUTOMATED NEUTROPHIL # 9.7 TH/MM3 (1.8-7.7); BASOPHIL % 0.1 % (0.0-2.0); HEMATOCRIT 35.1 % (35.0-46.0); HEMO FLAGS DIFF FINAL; LYMPH % 3.2 % (9.0-44.0); LYMPHOCYTE # 0.3 TH/MM3 (1.0-4.8); MEAN CELL VOLUME 86.4 FL (80.0-100.0); MEAN CORPUSCULAR HEMOGLOBIN 29.6 PG (27.0-34.0); MEAN CORPUSCULAR HGB CONC 34.3 % (32.0-36.0); MONO % 8.2 % (0.0-8.0); NEUT % 88.5 % (16.0-70.0); PLATELET COUNT 217 TH/MM3 (150-450); RED BLOOD COUNT 4.07 MIL/MM3 (4.00-5.30); RED CELL DISTRIBUTION WIDTH 12.7 % (11.6-17.2); WHITE BLOOD COUNT 10.9 TH/MM3 (4.0-11.0)
[2017-02-14 12:03] LABS: ANION GAP 9 MEQ/L (5-15); AST (GOT) 13 U/L (16-38); BLOOD UREA NITROGEN 8 MG/DL (7-18); CHLORIDE 102 MEQ/L (98-107); GLOMERULAR FILTRATION RATE 108 ML/MIN (>89); SODIUM (NA) 134 MEQ/L (136-145)
[2017-02-14 12:06] LABS: ALKALINE PHOSPHATASE 79 U/L (45-117); ALT (GPT) 13 U/L (9-42); TOTAL BILIRUBIN ADULT 0.4 MG/DL (0.2-1.0)
[2017-02-14 12:38] LABS: BLOOD, URINE NEG (NEG); COMMENT (UR) CULT NOT INDICATED; CULTURE IF INDICATED CULT NOT INDICATED; GLUCOSE,URINE NEG (NEG); KETONE, URINE 40 mg/dL (NEG); MUCUS URINE FEW /lpf (OCC); NITRITE,URINE NEG (NEG); PH, URINE 6.5 (5.0-8.5); SQUAMOUS EPITHELIAL CELL URINE 1 /hpf (0-5); URINE COLOR YELLOW (YELLW/STRAW)
[2017-02-14] MEDS ORDERED: ACETAMINOPHEN 500 MG CPLT PO ONE (12:45)
[2017-02-14] MEDS ORDERED: PYRI25TA2 PO (13:40)
[2017-02-14] MEDS ORDERED: ZOFR4TAB3 SL (13:40)
[2017-02-14] MEDS ORDERED: DOXY25TA7 PO (13:40)
[2017-02-14 19:44] LABS: CHLAMYDIA PCR NOT DETECTED (NOT DETECT); NEISSERIA PCR NOT DETECTED (NOT DETECT)
== END 2017-02-14 14:47 | disposition home or self-care (01) ==
LOC: NEPC 10:20
DX: O20.0 Threatened abortion (principal); O21.9 Vomiting of pregnancy, unspecified; R00.0 Tachycardia, unspecified; J45.909 Unspecified asthma, uncomplicated; O99.341 Other mental disorders complicating pregnancy, first trimester; F31.9 Bipolar disorder, unspecified; Z3A.01 Less than 8 weeks gestation of pregnancy
CPT/HCPCS: 80053; 81001; 85025; 86850; 86900; 86901; 87210; 87491; 87591; 96361; 96374; 99285; J2405; J7030

== ENCOUNTER 2018-04-26 04:02 | Observation (INO) ==
[2018-04-26] MEDS ORDERED: Sod Chloride 0.9% Inj 1,000 ML IV.SIG SCH (06:00)
--- NOTE | 2018-04-26 06:54 | XR ---
EXAM DATE: 04/26/2018 6:50 AM EST AGE/SEX: 23 years / Female INDICATIONS: . Syncopal episode. CLINICAL DATA: This is the patient's initial encounter. Patient reports that signs and symptoms have been present for 1 day and indicates a pain score of 0/10. MEDICAL/SURGICAL HISTORY: None. None. COMPARISON: [facility] – [place], CHEST SINGLE AP, 06/28/2016. . FINDINGS: AP and lateral views of the chest demonstrate the lungs to be symmetrically aerated without evidence of mass, infiltrate or effusion. The cardiomediastinal contours are unremarkable. Osseous structure s are intact. CONCLUSION: No acute disease Electronically signed by: Cesar Fuentes MD Board Certified Radiologist 04/26/2018 6:53 AM EST
[2018-04-26 07:01] LABS: Baso % (Auto) 0.3 % (0.0-2.0); Eos % (Auto) 0.1 % (0.0-4.0); Hematocrit 39.1 % (35.0-46.0); Hemoglobin 13.7 gm/dL (11.6-15.3); Lymph # (Auto) 1.4 th/mm3 (1.0-4.8); Lymph % (Auto) 11.1 % (9.0-44.0); Mean Corpuscular Hemoglobin 29.9 pg (27.0-34.0); Mean Corpuscular Volume 85.3 fL (80.0-100.0); Mean Platelet Volume 8.4 fL (7.0-11.0); Neut # (Auto) 10.6 th/mm3 (1.8-7.7); Neut % (Auto) 80.5 % (16.0-70.0); Platelet Count 270 th/mm3 (150-450); Red Blood Count 4.58 mil/mm3 (4.00-5.30); Red Cell Distribution Width 13.6 % (11.6-17.2); White Blood Count 13.1 th/mm3 (4.0-11.0)
[2018-04-26 07:13] LABS: Anion Gap 7 meq/L (5-15); Blood Urea Nitrogen 14 mg/dL (7-18); Calcium 9.2 mg/dL (8.5-10.1); Carbon Dioxide 26.5 meq/L (21.0-32.0); Chloride 107 meq/L (98-107); Glomerular Filtration Rate Greater Than 89 mL/min (>89); Glucose,Random 81 mg/dL (74-106); Potassium 3.6 meq/L (3.5-5.1); Sodium 140 meq/L (136-145)
--- NOTE | 2018-04-26 07:41 | CT ---
EXAM DATE: 04/26/2018 7:37 AM EST AGE/SEX: 23 years / Female INDICATIONS: Syncope CLINICAL DATA: This is the patient's initial encounter. Patient reports that signs and symptoms have been present for 1 day and indicates a pain score of 4/10. MEDICAL/SURGICAL HISTORY: Asthma. None. RADIATION DOSE: 56.77 CTDI (mGy) COMPARISON: [facility] – [place], CT BRAIN W/O CONTRAST, 03/16/2016. . TECHNIQUE: CT of the head without contrast. Using automated exposure control and adjustment of the mA and/or kV according to patient size, radiation dose was kept as low as reasonably achievable to ob tain optimal diagnostic quality images. DICOM format image data is available electronically for revi ew and comparison. FINDINGS: Cerebrum: The ventricles are normal for age. No evidence of midline shift, mass lesion, hemorrhage or acute infarction. No extraaxial fluid collections are seen. Posterior Fossa: The cerebellum and brainstem are intact. The 4th ventricle is midline. The cerebe llopontine angle is unremarkable. Extracranial: The visualized portion of the orbits is intact. Skull: The calvaria is intact. No evidence of skull fracture. CONCLUSION: 1. No acute intracranial abnormality . . Electronically signed by: Yury Li MD Board Certified Radiologist 04/26/2018 7:39 AM EST
--- NOTE | 2018-04-26 07:48 | ED ---
HPI General Chief complaint: Syncope Stated complaint: fall Time Seen by Provider: 04/26/18 05:22 Source: patient Mode of arrival: ambulatory Limitations: no limitations History of Present Illness HPI narrative: 23-year-old female came to the emergency room with history of dizziness and just not feeling right. Patient says that she started feeling like this about 24-36 hours back. She woke up feeling dizzy, numbness of her right side of her face and bilateral upper extremities. Patient at that time thought that she was having a stroke. She went to [facility] emergency room. As per the patient they never did anything. Upon asking she said a CAT scan of the brain was not done. Patient was discharged home. She soon after that came to be seen in this emergency room which was yesterday. Blood work and urinalysis was done. Patient eventually was discharged home after she was asked to get a psych screen. Patient refused to get a psych screen at that time. She says that she smokes marijuana every day. On [birth year] was her birthday and she took one ecstasy pill as well. Other than that she has not done any other drugs as per her. She has not drink excessive amount of alcohol. Patient appeared to be quite emaciated and upon asking says that she lost close to 20 pounds in past 2 weeks. This was performed by her partner as well who was in the room. No history of nausea vomiting. No history of cough. Patient says that her throat hurts and wanted me to check her throat. She has also felt a lump on the left side of her throat. Patient also showed me this rash that developed last night on her right forearm. Related Data Home Medications Medication Instructions Recorded Confirmed No Known Home Medications 04/25/18 04/26/18 Allergies Allergy/AdvReac Type Severity Reaction Status Date / Time No Known Allergies Allergy Verified 04/25/18 16:51 Review of Systems ROS: all other systems reviewed are negative [facility] Medical History Medical History Asthma (Acute) Surgical History Surgical History No history of previous surgery (Acute) Family History Family History Other Hypertension Social History Social History Substance History: Active Abuse Second Hand Smoke Exposure: Yes Smoking Status: Current every day smoker Tobacco Type: Cigarettes How Often Do You Have a Drink Containing Alcohol: 2 to 4 times a month Recent Travel in [facility] within the Last 8 Weeks: No Recent Out of Country Travel within the Last 8 Weeks: No Substance Abuse Detail Other: Substance Use Type Other:: Ecstasy Substance Use Status: Active Route Used Substance Abuse: By Mouth Last Used: 04/23/18 Substance Abuse Comment: Patient stated she took 1 1/2 pills on her bday on 04/23/18 Reason for Use: Get High Immunization History Tetanus Immunization: <5 Years Exam Narrative Exam Narrative: GENERAL: Awake, alert, emaciated, anxious SKIN: Focused skin assessment warm/dry. Generalized, mobile, nontender, soft, 0.5-1 cm multiple lymphadenopathy. Patient has 2-3 erythematous, maculopapular rash on her right forearm on the extensor aspect as well as volar aspect that is tender to touch with erythematous streaking going up to the elbow. HEAD: Atraumatic. Normocephalic. EYES: Pupils equal and round. No scleral icterus. No injection or drainage. ENT: No nasal bleeding or discharge. Mucous membranes pink and moist. NECK: Trachea midline. No JVD. CARDIOVASCULAR: Regular rate and rhythm. No murmur appreciated. RESPIRATORY: No accessory muscle use. Clear to auscultation. Breath sounds equal bilaterally. GASTROINTESTINAL: Abdomen soft, non-tender, nondistended. Hepatic and splenic margins not palpable. MUSCULOSKELETAL: No obvious deformities. No clubbing. No cyanosis. No edema. NEUROLOGICAL: Awake and alert. No obvious cranial nerve deficits. Motor grossly within normal limits. Normal speech. PSYCHIATRIC: Appropriate mood and affect; insight and judgment normal. Course Initial Documented Vital Signs Temperature 98.2 F 04/26/18 04:07 Pulse Rate 86 04/26/18 04:07 Respiratory Rate 16 04/26/18 04:07 Blood Pressure 132/72 04/26/18 04:07 Pulse Oximetry 98 04/26/18 04:07 Last Documented Vital Signs Temperature 98.7 F 04/27/18 07:48 Pulse Rate 63 04/27/18 07:48 Respiratory Rate 16 04/27/18 07:48 Blood Pressure 122/61 04/27/18 07:48 Pulse Oximetry 95 04/27/18 07:48 Sign Out Sign Out Data: Patient Sign Out occurred on 04/26/18 at 08:22. Patient's care was discussed, and care was transferred from Zaid Jc to Larry Alberto MD. Sign Out Comment: Follow-up on blood test result. Disposition according Last updated by Zaid Jc MD at 04/26/18 07:56 Post-Handoff Eval: Patient continues to have worsening lymphangitic spread up the arm from her rash on the arm. Main suspicion is this is some type of atypical soft tissue infection. Recommend admission, IV antibiotics, HIV test, reassess. Medical Decision Making MDM Narrative Medical decision making narrative: 7:50 AM awaiting for blood test result. Patient has been ordered for a CT head to rule out any intracranial lesions. Sed rate and CRP has been ordered to look for any inflammatory disorder. Case has been signed over to the oncoming ER physician. Medical Screen Exam Complete: Yes Emergency Medical Condition: Yes Lab Data Result diagrams: 04/27/18 07:16 04/27/18 07:16 POC Results POC Urine Results Negative Lab Results 04/26/18 04/26/18 04/26/18 Range/Units 06:26 06:26 06:26 WBC 13.1 H D (4.0-11.0) th/mm3 RBC 4.58 (4.00-5.30) mil/mm3 Hgb 13.7 (11.6-15.3) gm/dL Hct 39.1 (35.0-46.0) % MCV 85.3 (80.0-100.0) fL MCH 29.9 (27.0-34.0) pg MCHC 35.0 (32.0-36.0) % RDW 13.6 (11.6-17.2) % Plt Count 270 (150-450) th/mm3 MPV 8.4 (7.0-11.0) fL Neut % (Auto) 80.5 H (16.0-70.0) % Lymph % (Auto) 11.1 (9.0-44.0) % Webb % (Auto) 8.0 (0.0-8.0) % Eos % (Auto) 0.1 (0.0-4.0) % Baso % (Auto) 0.3 (0.0-2.0) % Neut # (Auto) 10.6 H (1.8-7.7) th/mm3 Lymph # (Auto) 1.4 (1.0-4.8) th/mm3 Webb # (Auto) 1.0 H (0.0-0.9) th/mm3 Eos # (Auto) 0.0 (0.0-0.4) th/mm3 Baso # (Auto) 0.0 (0.0-0.2) th/mm3 WBC Differential . Differential Comment Auto diff final ESR (0-20) mm/hr Sodium 140 (136-145) meq/L Potassium 3.6 (3.5-5.1) meq/L Chloride 107 (98-107) meq/L Carbon Dioxide 26.5 (21.0-32.0) meq/L Anion Gap 7 (5-15) meq/L BUN 14 (7-18) mg/dL Creatinine 0.78 (0.50-1.00) mg/dL Estimated GFR Greater than 89 (>89) mL/min Random Glucose 81 (74-106) mg/dL Lactic Acid 1.0 (0.4-2.0) mmol/L Calcium 9.2 (8.5-10.1) mg/dL C-Reactive Protein (0.00-0.30) mg/dL Urine Color (Yellw/Straw) Urine Clarity (Clear) Urine pH (5.0-8.5) Ur Specific [place] (1.002-1.035) Urine Protein (Neg-Trace) mg/dL Urine Glucose (UA) (Negative) mg/dL Urine Ketones (Negative) mg/dL Urine Occult Blood (Negative) Urine Nitrate (Negative) Urine Bilirubin (Negative) Urine Urobilinogen (Less than 2) mg/dL Ur Leukocyte Esterase (Negative) Urine RBC (0-3) /hpf Urine WBC (0-5) /hpf Ur Squamous Epith Cells (0-5) /hpf Urine Bacteria (None) /hpf Granular Casts (None) /lpf Urine Mucus (Occasional) /lpf Micro UA Comment Ur Microscopic Review Urine Culture Comments Urine Opiates Screen (Neg) Ur Barbiturates Screen (Neg) Ur Amphetamines Screen (Neg) U Benzodiazepines Scrn (Neg) Urine Cocaine Screen (Neg) U Cannabinoids Screen (Neg) RYAN Screen (Neg) RPR (Nonreactive) CMV IgG Ab U/mL CMV IgM Ab (<=0.8) AU/mL EBV (Quant-PCR) Quant (Undetected) IU/mL 04/26/18 04/26/18 04/26/18 Range/Units 06:26 06:26 12:47 WBC (4.0-11.0) th/mm3 RBC (4.00-5.30) mil/mm3 Hgb (11.6-15.3) gm/dL Hct (35.0-46.0) % MCV (80.0-100.0) fL MCH (27.0-34.0) pg MCHC (32.0-36.0) % RDW (11.6-17.2) % Plt Count (150-450) th/mm3 MPV (7.0-11.0) fL Neut % (Auto) (16.0-70.0) % Lymph % (Auto) (9.0-44.0) % Webb % (Auto) (0.0-8.0) % Eos % (Auto) (0.0-4.0) % Baso % (Auto) (0.0-2.0) % Neut # (Auto) (1.8-7.7) th/mm3 Lymph # (Auto) (1.0-4.8) th/mm3 Webb # (Auto) (0.0-0.9) th/mm3 Eos # (Auto) (0.0-0.4) th/mm3 Baso # (Auto) (0.0-0.2) th/mm3 WBC Differential Differential Comment ESR 29 H (0-20) mm/hr Sodium (136-145) meq/L Potassium (3.5-5.1) meq/L Chloride (98-107) meq/L Carbon Dioxide (21.0-32.0) meq/L Anion Gap (5-15) meq/L BUN (7-18) mg/dL Creatinine (0.50-1.00) mg/dL Estimated GFR (>89) mL/min Random Glucose (74-106) mg/dL Lactic Acid (0.4-2.0) mmol/L Calcium (8.5-10.1) mg/dL C-Reactive Protein 0.88 H (0.00-0.30) mg/dL Urine Color (Yellw/Straw) Urine Clarity (Clear) Urine pH (5.0-8.5) Ur Specific [place] (1.002-1.035) Urine Protein (Neg-Trace) mg/dL Urine Glucose (UA) (Negative) mg/dL Urine Ketones (Negative) mg/dL Urine Occult Blood (Negative) Urine Nitrate (Negative) Urine Bilirubin (Negative) Urine Urobilinogen (Less than 2) mg/dL Ur Leukocyte Esterase (Negative) Urine RBC (0-3) /hpf Urine WBC (0-5) /hpf Ur Squamous Epith Cells (0-5) /hpf Urine Bacteria (None) /hpf Granular Casts (None) /lpf Urine Mucus (Occasional) /lpf Micro UA Comment Ur Microscopic Review Urine Culture Comments Urine Opiates Screen (Neg) Ur Barbiturates Screen (Neg) Ur Amphetamines Screen (Neg) U Benzodiazepines Scrn (Neg) Urine Cocaine Screen (Neg) U Cannabinoids Screen (Neg) RYAN Screen (Neg) RPR Nonreactive (Nonreactive) CMV IgG Ab U/mL CMV IgM Ab (<=0.8) AU/mL EBV (Quant-PCR) Quant (Undetected) IU/mL 04/26/18 04/26/18 04/26/18 Range/Units 12:47 12:47 13:15 WBC (4.0-11.0) th/mm3 RBC (4.00-5.30) mil/mm3 Hgb (11.6-15.3) gm/dL Hct (35.0-46.0) % MCV (80.0-100.0) fL MCH (27.0-34.0) pg MCHC (32.0-36.0) % RDW (11.6-17.2) % Plt Count (150-450) th/mm3 MPV (7.0-11.0) fL Neut % (Auto) (16.0-70.0) % Lymph % (Auto) (9.0-44.0) % Webb % (Auto) (0.0-8.0) % Eos % (Auto) (0.0-4.0) % Baso % (Auto) (0.0-2.0) % Neut # (Auto) (1.8-7.7) th/mm3 Lymph # (Auto) (1.0-4.8) th/mm3 Webb # (Auto) (0.0-0.9) th/mm3 Eos # (Auto) (0.0-0.4) th/mm3 Baso # (Auto) (0.0-0.2) th/mm3 WBC Differential Differential Comment ESR (0-20) mm/hr Sodium (136-145) meq/L Potassium (3.5-5.1) meq/L Chloride (98-107) meq/L Carbon Dioxide (21.0-32.0) meq/L Anion Gap (5-15) meq/L BUN (7-18) mg/dL Creatinine (0.50-1.00) mg/dL Estimated GFR (>89) mL/min Random Glucose (74-106) mg/dL Lactic Acid (0.4-2.0) mmol/L Calcium (8.5-10.1) mg/dL C-Reactive Protein (0.00-0.30) mg/dL Urine Color (Yellw/Straw) Urine Clarity (Clear) Urine pH (5.0-8.5) Ur Specific [place] (1.002-1.035) Urine Protein (Neg-Trace) mg/dL Urine Glucose (UA) (Negative) mg/dL Urine Ketones (Negative) mg/dL Urine Occult Blood (Negative) Urine Nitrate (Negative) Urine Bilirubin (Negative) Urine Urobilinogen (Less than 2) mg/dL Ur Leukocyte Esterase (Negative) Urine RBC (0-3) /hpf Urine WBC (0-5) /hpf Ur Squamous Epith Cells (0-5) /hpf Urine Bacteria (None) /hpf Granular Casts (None) /lpf Urine Mucus (Occasional) /lpf Micro UA Comment Ur Microscopic Review Urine Culture Comments Urine Opiates Screen Neg (Neg) Ur Barbiturates Screen Neg (Neg) Ur Amphetamines Screen Pos H (Neg) U Benzodiazepines Scrn Neg (Neg) Urine Cocaine Screen Neg (Neg) U Cannabinoids Screen Pos H (Neg) RAYN Screen Neg (Neg) RPR (Nonreactive) CMV IgG Ab <0.60 U/mL CMV IgM Ab <30.00 (<=0.8) AU/mL EBV (Quant-PCR) Quant Undetected (Undetected) IU/mL 04/26/18 04/27/18 04/27/18 Range/Units 13:15 07:16 07:16 WBC 6.9 (4.0-11.0) th/mm3 RBC 3.86 L (4.00-5.30) mil/mm3 Hgb 11.6 D (11.6-15.3) gm/dL Hct 32.9 L (35.0-46.0) % MCV 85.4 (80.0-100.0) fL MCH 30.0 (27.0-34.0) pg MCHC 35.1 (32.0-36.0) % RDW 13.3 (11.6-17.2) % Plt Count 239 (150-450) th/mm3 MPV 8.4 (7.0-11.0) fL Neut % (Auto) 61.5 (16.0-70.0) % Lymph % (Auto) 25.5 (9.0-44.0) % Webb % (Auto) 11.1 H (0.0-8.0) % Eos % (Auto) 1.5 (0.0-4.0) % Baso % (Auto) 0.4 (0.0-2.0) % Neut # (Auto) 4.2 (1.8-7.7) th/mm3 Lymph # (Auto) 1.8 (1.0-4.8) th/mm3 Webb # (Auto) 0.8 (0.0-0.9) th/mm3 Eos # (Auto) 0.1 (0.0-0.4) th/mm3 Baso # (Auto) 0.0 (0.0-0.2) th/mm3 WBC Differential . Differential Comment Auto diff final ESR (0-20) mm/hr Sodium 142 (136-145) meq/L Potassium 3.5 (3.5-5.1) meq/L Chloride 109 H (98-107) meq/L Carbon Dioxide 25.6 (21.0-32.0) meq/L Anion Gap 7 (5-15) meq/L BUN 10 (7-18) mg/dL Creatinine 0.67 (0.50-1.00) mg/dL Estimated GFR Greater than 89 (>89) mL/min Random Glucose 70 L (74-106) mg/dL Lactic Acid (0.4-2.0) mmol/L Calcium 8.5 (8.5-10.1) mg/dL C-Reactive Protein (0.00-0.30) mg/dL Urine Color Yellow (Yellw/Straw) Urine Clarity Hazy H (Clear) Urine pH 5.0 (5.0-8.5) Ur Specific [place] 1.023 (1.002-1.035) Urine Protein 100 H (Neg-Trace) mg/dL Urine Glucose (UA) Negative (Negative) mg/dL Urine Ketones 20 (Negative) mg/dL Urine Occult Blood Negative (Negative) Urine Nitrate Negative (Negative) Urine Bilirubin Negative (Negative) Urine Urobilinogen Less than 2 (Less than 2) mg/dL Ur Leukocyte Esterase Negative (Negative) Urine RBC 1 (0-3) /hpf Urine WBC 8 H (0-5) /hpf Ur Squamous Epith Cells 4 (0-5) /hpf Urine Bacteria Rare H (None) /hpf Granular Casts 3 (None) /lpf Urine Mucus Many H (Occasional) /lpf Micro UA Comment Culture not ind Ur Microscopic Review Not Reportable Urine Culture Comments Culture not ind Urine Opiates Screen (Neg) Ur Barbiturates Screen (Neg) Ur Amphetamines Screen (Neg) U Benzodiazepines Scrn (Neg) Urine Cocaine Screen (Neg) U Cannabinoids Screen (Neg) RYAN Screen (Neg) RPR (Nonreactive) CMV IgG Ab U/mL CMV IgM Ab (<=0.8) AU/mL EBV (Quant-PCR) Quant (Undetected) IU/mL Imaging Data Radiologist's impression: Chest X-Ray 04/26/18 06:15 CONCLUSION: No acute disease Head CT 04/26/18 06:15 CONCLUSION: 1. No acute intracranial abnormality . . ECG Data Attestation: I personally reviewed and interpreted this ECG as follows: Interpretation: Twelve-lead EKG was reviewed by me. Normal sinus rhythm, normal axis, nonspecific ST-T wave changes. Heart rate of 76 bpm. Discharge Plan Discharge Disposition Patient Disposition: ED Admit(ED Internal Use Only) Discharge Condition Condition: Fair Discharge Order Discharge Orders: AMA Discharge (Routine); Ordered 04/27/18 Ordered By: Alex Pinon ED Use Only Admit Order (Routine); Ordered 04/26/18 Ordered By: Larry Alberto Discharge Details Anticipated Discharge Date: 04/27/18 Discharge Comment: Patient left AMA Physicians Team ED Provider: Larry Alberto Primary Care Provider: Primary Care Pema Maldonado Attending Provider: Alex Pinon Other Providers: [facility],Insurance Status ED Status: Left Department Discharge Information Discharge Date/Time: 04/26/18 10:20
[2018-04-26] MEDS ORDERED: Clindamycin 600 mg/NS Premix 600 MG/50 ML PIGGYBACK IV.SIG STA (08:39)
--- NOTE | 2018-04-26 08:42 | ECG ---
Date Performed: 04/26/2018 Time Performed: 05:41:47 PTAGE: 23 years EKG: Sinus rhythm WITH MARKED SINUS ARRHYTHMIA POSSIBLE LEFT ATRIAL ENLARGEMENT BORDERLINE ECG No significant change f rom prior electrocardiogram. PREVIOUS TRACING : 06/28/2016 16.38 DOCTOR: Nadeem Rooney Interpretating Date/Time 04/26/2018 08:40:27
[2018-04-26] MEDS ORDERED: Acetaminophen 325 MG Tablet PO PRN (09:42)
[2018-04-26] MEDS ORDERED: Sod Chloride 0.9% Inj 1,000 ML IV.CONT SCH (09:45)
--- NOTE | 2018-04-26 09:58 | P.HPIM ---
History of Present Illness Primary Care Physician: No Primary Care Physician History of Present Illness: 23-year-old female with no significant medical history who delivered a healthy baby 1 year ago presents to the ER 3 times in the last 24 hours complaining of dizziness, weakness, low-grade fever, random rash worsening on left arm. Her symptoms began yesterday morning when she visited an ER in the [facility] complaining of bilateral arm tingling and facial weakness, she was told she had a low potassium and was sent home. Despite eating bananas her symptoms persisted and she came to the ER at [place] yesterday afternoon, workup revealed nothing and she was sent home. Later that evening she had a syncopal episode, her rash on her left arm worsened and she returned to the ER for yet another visit. She denies any IV drug use. She denies any exposure to chemicals or plants. She does admit to having 1 dog, 1 cat, 1 hamster. Her dog is let out and does go into the bushes and trees areas. She cannot recall her cat scratching her on either hand in the last weeks. Her baby is approximately 1 years old and did have a febrile syndrome with a rash approximately 1 week ago, when evaluated she was told that the baby had colic but was otherwise healthy, the symptoms resolved on their own. She has not been sexually active with a man since becoming with her baby. She denies any vaginal discharge or abnormal bleeding pattern. She denies any foreign travel or camping/hiking. She denies any chest pain or palpitations. She denies any dysuria. She denies any cough or shortness of breath. Review of Systems Review of Systems: all other systems reviewed are negative [facility] Medical History Medical History Asthma (Acute) Surgical History Surgical History No history of previous surgery (Acute) Family History Family History Other Hypertension Social History Social History Substance History: Active Abuse Second Hand Smoke Exposure: Yes Smoking Status: Current every day smoker Tobacco Type: Cigarettes How Often Do You Have a Drink Containing Alcohol: 2 to 3 times a week Recent Travel in [facility] within the Last 8 Weeks: No Recent Out of Country Travel within the Last 8 Weeks: No Substance Abuse Detail Other: Substance Use Type Other:: Ecstasy Substance Use Status: Active Route Used Substance Abuse: By Mouth Last Used: 04/23/18 Substance Abuse Comment: Patient stated she took 1 1/2 pills on her bday on 04/23/18 Reason for Use: Get High Immunization History Tetanus Immunization: <5 Years Medications and Allergies Allergies Allergy/AdvReac Type Severity Reaction Status Date / Time No Known Allergies Allergy Verified 04/25/18 16:51 Home Medications Medication Instructions Recorded Confirmed Type No Known Home Medications 04/25/18 04/26/18 History Active Medications: Active Medications Acetaminophen (Tylenol) 650 mg PO Q4H PRN PRN Reason: Temp > 100.4 Sodium Chloride (Ns Inj) 1,000 mls @ 42 mls/hr IV.CONT .[id number] [facility] Ondansetron HCl (Zofran Inj) 4 mg IV.PUSH Q6H PRN PRN Reason: NAUSEA OR VOMITING Sodium Chloride (Ns Flush) 2 ml IV.FLUSH PRN PRN PRN Reason: FLUSH AFTER USING IV ACCESS Sodium Chloride (Ns Flush) 2 ml IV.FLUSH BID [facility] Physical Exam Vital signs: Vital Signs 04/26/18 04:07 04/26/18 05:25 04/26/18 05:49 Temperature 98.2 F 98.7 F Pulse Rate 86 82 Respiratory Rate 16 21 Blood Pressure 132/72 116/79 Pulse Oximetry 98 100 04/26/18 07:55 Temperature 98.7 F Pulse Rate 89 Respiratory Rate 18 Blood Pressure 119/66 Pulse Oximetry 98 Intake & Output 04/25/18 04/26/18 04/26/18 18:59 06:59 18:59 Intake Total 1000 / 1000 Balance 1000 / 1000 Weight 49.895 kg Intake: IV 1000 / 1000 NS Inj 1,000 ML @ 1000 mls/hr 1000 / 1000 IV.SIG BOLUS [facility] Rx#:[id number] Narrative: GENERAL: AAOx3, no acute distress, adequate nutrition, very thin SKIN: Warm and dry, red rash and swelling of her left wrist with random reddish papules on left arm and bicep, occasional moderate lymph node enlargement, no axillary lymph nodes enlarged, left anterior cervical lymph node enlargement HEAD: Atraumatic. Normocephalic. EYES: Pupils equal, round, reactive to light. No scleral icterus. No injection or drainage. ENT: No nasal bleeding or discharge. Moist mucous membranes. Nonerythematous oropharynx. NECK: Trachea midline. No JVD. Thyroid size within normal limits. CARDIOVASCULAR: Regular rate and rhythm. No murmur, no gallops, no rubs. RESPIRATORY: Clear and equal to auscultation bilaterally. No crackles, no wheezes. No accessory muscle use. GASTROINTESTINAL: Abdomen soft, non-tender, nondistended, normal active bowel sounds. Hepatic and splenic margins not palpable. MUSCULOSKELETAL: Extremities without clubbing or cyanosis. No obvious deformities. No edema. NEUROLOGICAL: Awake and alert. No obvious cranial nerve deficits. Motor grossly within normal limits. No focal deficits. Five out of 5 muscle strength in the arms and legs. Normal speech. Tremulous hands PSYCHIATRIC: Anxious; insight and judgment normal. Results Labs CBC & Chem 7: 04/26/18 06:26 04/26/18 06:26 Imaging Impressions Chest X-Ray 04/26/18 06:15 CONCLUSION: No acute disease Head CT 04/26/18 06:15 CONCLUSION: 1. No acute intracranial abnormality . . Caprini VTE Risk Assessment Caprini VTE Risk Assessment: No/Low Risk (score <= 1) Caprini Risk Assessment Model: Point Value = 1 Point Value = 2 Point Value = 3 Point Value = 5 Age 41-60 Minor surgery BMI > 25 kg/m2 Swollen legs Varicose veins or History of unexplained or recurrent spontaneous Oral contraceptives or hormone replacement Sepsis (< 1 month) Serious lung disease, including pneumonia (< 1 month) Abnormal pulmonary function Acute myocardial infarction Congestive heart failure (< 1 month) History of inflammatory bowel disease Medical patient at bed rest Age 61-74 Arthroscopic surgery Major open surgery (> 45 min) Laparoscopic surgery (> 45 min) Malignancy Confined to bed (> 72 hours) Immobilizing plaster cast Central venous access Age >= 75 History of VTE Family history of VTE Factor V Leiden Prothrombin [id number] Lupus anticoagulant Anticardiolipin antibodies Elevated serum homocysteine Heparin-induced thrombocytopenia Other congenital or acquired thrombophilia Stroke (< 1 month) Elective arthroplasty Hip, pelvis, or leg fracture Acute spinal cord injury (< 1 month) Prophylaxis Regimen: Total Risk Factor Score Risk Level Prophylaxis Regimen 0-1 Low Early ambulation 2 Moderate Order ONE of the following: *Sequential Compression Device (SCD) *Heparin 5000 units SQ BID 3-4 Higher Order ONE of the following medications: *Heparin 5000 units SQ TID *Enoxaparin/Lovenox 40 mg SQ daily (WT < 150 kg, CrCl > 30 mL/min) *Enoxaparin/Lovenox 30 mg SQ daily (WT < 150 kg, CrCl > 10-29 mL/min) *Enoxaparin/Lovenox 30 mg SQ BID (WT < 150 kg, CrCl > 30 mL/min) AND/OR *Sequential Compression Device (SCD) 5 or more Highest Order ONE of the following medications: *Heparin 5000 units SQ TID (Preferred with Epidurals) *Enoxaparin/Lovenox 40 mg SQ daily (WT < 150 kg, CrCl > 30 mL/min) *Enoxaparin/Lovenox 30 mg SQ daily (WT < 150 kg, CrCl > 10-29 mL/min) *Enoxaparin/Lovenox 30 mg SQ BID (WT < 150 kg, CrCl > 30 mL/min) AND *Sequential Compression Device (SCD) Assessment and Plan Plan Rash, swelling, with fevers Nonspecific presentation, uncertain etiology We will screen for latent syphilis with RPR Her baby was recently sick, so will screen for CMV and EBV RYAN screen in case of lupus Agree with clindamycin for now to cover for cellulitis If rash worsens will expand coverage to include tickborne illnesses or cat scratch fever Follow CBC in a.m. for trending of leukocytosis Anxiety Nonspecific, she did not sleep well We will add anxiety meds if symptoms worsen DVT prophylaxis Patient is fully ambulatory
[2018-04-26 13:33] LABS: Bacteria,Urine Rare /hpf; Bilirubin,Urine Negative (Negative); Clarity,Urine Hazy (Clear); Color,Urine Yellow (Yellw/Straw); Glucose,Urine (UA) Negative (Negative); Leukocyte Esterase,Urine Negative (Negative); Mucus,Urine Many /lpf (Occasional); Nitrite,Urine Negative (Negative); Specific Gravity,Urine 1.023 (1.002-1.035); Squamous Epithelial Cell,Urine 4 /hpf (0-5)
[2018-04-26] MEDS ORDERED: Acetaminophen/Codeine 300/30 MG Tablet PO PRN (18:51)
[2018-04-27 01:03] LABS: Amphetamine Screen,Urine Pos (Neg); Barbiturate Screen,Urine Neg (Neg); Cannabinoid Screen,Urine Pos (Neg); Cocaine Screen,Urine Neg (Neg)
[2018-04-27 01:06] LABS: Opiate Screen,Urine Neg (Neg)
[2018-04-27 07:49] VITALS: BP 122/61; PULSE 63; RESP 16; TEMP 98.7; O2SAT 95
[2018-04-27 08:08] LABS: Baso % (Auto) 0.4 % (0.0-2.0); Eos # (Auto) 0.1 th/mm3 (0.0-0.4); Eos % (Auto) 1.5 % (0.0-4.0); Hematocrit 32.9 % (35.0-46.0); Hemoglobin 11.6 gm/dL (11.6-15.3); Lymph # (Auto) 1.8 th/mm3 (1.0-4.8); Lymph % (Auto) 25.5 % (9.0-44.0); Mean Corpuscular HGB Conc 35.1 % (32.0-36.0); Mean Corpuscular Volume 85.4 fL (80.0-100.0); Mean Platelet Volume 8.4 fL (7.0-11.0); Mono # (Auto) 0.8 th/mm3 (0.0-0.9); Mono % (Auto) 11.1 % (0.0-8.0); Neut # (Auto) 4.2 th/mm3 (1.8-7.7); Neut % (Auto) 61.5 % (16.0-70.0); Platelet Count 239 th/mm3 (150-450); Red Blood Count 3.86 mil/mm3 (4.00-5.30); Red Cell Distribution Width 13.3 % (11.6-17.2); White Blood Count 6.9 th/mm3 (4.0-11.0)
[2018-04-27 08:25] LABS: Anion Gap 7 meq/L (5-15); Blood Urea Nitrogen 10 mg/dL (7-18); Calcium 8.5 mg/dL (8.5-10.1); Carbon Dioxide 25.6 meq/L (21.0-32.0); Chloride 109 meq/L (98-107); Glomerular Filtration Rate Greater Than 89 mL/min (>89); Glucose,Random 70 mg/dL (74-106); Potassium 3.5 meq/L (3.5-5.1); Sodium 142 meq/L (136-145)
--- NOTE | 2018-04-27 18:09 | P.DS ---
DS: Providers Date of admission: 04/26/18 09:14 Primary care physician: No Primary Care Physician Consults: 04/26/18 09:53 HUB Only Consult Order Routine Consulting Provider: [facility],Insurance Brief History from admission: 23-year-old female with no significant medical history who delivered a healthy baby 1 year ago presents to the ER 3 times in the last 24 hours complaining of dizziness, weakness, low-grade fever, random rash worsening on left arm. Her symptoms began yesterday morning when she visited an ER in the [facility] complaining of bilateral arm tingling and facial weakness, she was told she had a low potassium and was sent home. Despite eating bananas her symptoms persisted and she came to the ER at [place] yesterday afternoon, workup revealed nothing and she was sent home. Later that evening she had a syncopal episode, her rash on her left arm worsened and she returned to the ER for yet another visit. She denies any IV drug use. She denies any exposure to chemicals or plants. She does admit to having 1 dog, 1 cat, 1 hamster. Her dog is let out and does go into the bushes and trees areas. She cannot recall her cat scratching her on either hand in the last weeks. Her baby is approximately 1 years old and did have a febrile syndrome with a rash approximately 1 week ago, when evaluated she was told that the baby had colic but was otherwise healthy, the symptoms resolved on their own. She has not been sexually active with a man since becoming with her baby. She denies any vaginal discharge or abnormal bleeding pattern. She denies any foreign travel or camping/hiking. She denies any chest pain or palpitations. She denies any dysuria. She denies any cough or shortness of breath. DS: Summary Patient left AMA this morning before any significant workup or discussion of workup could occur Time Spent with Patient Total time spent providing and/or coordinating discharge services: Quality: VTE Deep Vein Thrombosis/Pulmonary Embolism Present on Admission: No Results Labs on day of discharge: Labs from last 24 hours 04/27/18 04/27/18 04/26/18 07:16 07:16 13:15 WBC 6.9 RBC 3.86 L Hgb 11.6 D Hct 32.9 L MCV 85.4 MCH 30.0 MCHC 35.1 RDW 13.3 Plt Count 239 MPV 8.4 Neut % (Auto) 61.5 Lymph % (Auto) 25.5 [place] % (Auto) 11.1 H Eos % (Auto) 1.5 Baso % (Auto) 0.4 Neut # (Auto) 4.2 Lymph # (Auto) 1.8 [place] # (Auto) 0.8 Eos # (Auto) 0.1 Baso # (Auto) 0.0 WBC Differential . Differential Comment Auto diff final Sodium 142 Potassium 3.5 Chloride 109 H Carbon Dioxide 25.6 Anion Gap 7 BUN 10 Creatinine 0.67 Estimated GFR Greater than 89 Random Glucose 70 L Calcium 8.5 Urine Opiates Screen Neg Ur Barbiturates Screen Neg Ur Amphetamines Screen Pos H U Benzodiazepines Scrn Neg Urine Cocaine Screen Neg U Cannabinoids Screen Pos H RYAN Screen 04/26/18 12:47 WBC RBC Hgb Hct MCV MCH MCHC RDW Plt Count MPV Neut % (Auto) Lymph % (Auto) [place] % (Auto) Eos % (Auto) Baso % (Auto) Neut # (Auto) Lymph # (Auto) [place] # (Auto) Eos # (Auto) Baso # (Auto) WBC Differential Differential Comment Sodium Potassium Chloride Carbon Dioxide Anion Gap BUN Creatinine Estimated GFR Random Glucose Calcium Urine Opiates Screen Ur Barbiturates Screen Ur Amphetamines Screen U Benzodiazepines Scrn Urine Cocaine Screen U Cannabinoids Screen RYAN Screen Neg Preliminary micro results at discharge 04/26/18 06:21 Aerobic Blood Culture - Preliminary Blood - Peripheral No growth in 1 day Anaerobic Blood Culture - Preliminary No growth in 1 day 04/26/18 06:26 Aerobic Blood Culture - Preliminary Blood - Peripheral No growth in 1 day Anaerobic Blood Culture - Preliminary No growth in 1 day Impressions ITS Impressions Chest X-Ray 04/26/18 06:15 CONCLUSION: No acute disease Head CT 04/26/18 06:15 CONCLUSION: 1. No acute intracranial abnormality . . Discharge Plan Discharge Disposition Patient Disposition: 07 Against Medical Advice Discharge Condition Condition: Fair Discharge Order Discharge Orders: AMA Discharge (Routine); Ordered 04/27/18 Ordered By: Alex Pinon Discharge Details Anticipated Discharge Date: 04/27/18 Discharge Comment: Patient left AMA Physicians Team ED Provider: Larry Alberto Primary Care Provider: Primary Care [facility],No Attending Provider: Alex Pinon Other Providers: [employer],Insurance Rxs /Orders / Referrals /Forms Prescriptions: No Action No Known Home Medications RF: 0 Referrals: Primary Care Pema Maldonado [Primary Care Provider] - See Instructions Discharge Instructions Additional Instructions: Your Health Problems: lymphangitis Goals to Promote Your Health: * To prevent worsening of your condition * To maintain your health at the optimal level Directions to Meet Your Goals: * Take your medications as prescribed * Follow your dietary instruction * Follow activity as directed * Keep your appointments as scheduled * Take your immunizations and boosters as scheduled * If your symptoms worsen call your PCP * If no PCP go to Urgent Care or Emergency Room Smoking is dangerous to your health. Avoid second hand smoke. You may reach the 24-hour crisis hotline for domestic abuse at . Status ED Status: Left Department Discharge Information Discharge Date/Time: 04/27/18 08:27
[2018-04-28 23:52] LABS: Cytomegalovirus Ab IgG <0.60 U/mL; Cytomegalovirus Ab IgM <30.00 AU/mL (<=0.8)
== END 2018-04-27 08:27 | disposition left against medical advice (07) ==
LOC: NEPE 04:02 → NEDA 04:02 → NEPFCDU 10:20
PROVIDERS: ADMIT Family Medicine; ATTEND Family Medicine
DX: R50.9 Fever, unspecified; F41.9 Anxiety disorder, unspecified; F12.90 Cannabis use, unspecified, uncomplicated; R20.2 Paresthesia of skin; D72.829 Elevated white blood cell count, unspecified; R64 Cachexia; J45.909 Unspecified asthma, uncomplicated; F17.210 Nicotine dependence, cigarettes, uncomplicated; R21 Rash and other nonspecific skin eruption; R29.810 Facial weakness
CPT/HCPCS: 70450; 71020; 71046; 80048; 80307; 81001; 83605; 85025; 85651; 85652; 86038; 86140; 86592; 86644; 86645; 87040; 87799; 90761; 93005; 96361; 96365; 99285; G0378; J7030